=== PATIENT | male | born 1965 | race Caucasian/White ===

== ENCOUNTER → 2019-01-09 | Outpatient (CLI) | payer OTHER ==
--- NOTE | 2019-01-09 17:07 | Pulmonary Function Test ---
Pulmonary Function Test Date of Procedure:: 01/09/19 INDICATION:: COPD Referring Provider: Dr. Lazarus Burgos Wire Basket Maker: Rose Holman [employer] MANAGER, [employer] - Report Spirometry: Spirometry: pre-FVC: 6.41 L 125% pre-FEV:1 4.62 L 111% pre-FEV1/FVC % 72 predicted 80 [id number]% 3.22 L 77% Impression: Small airways disease noted by the decrease in flow at FEF 25-75%. This implies obstructive ventilatory defect
== END ==
LOC: RT 10:02
DX: J44.9 Chronic obstructive pulmonary disease, unspecified (principal); I10 Essential (primary) hypertension; E11.9 Type 2 diabetes mellitus without complications
CPT/HCPCS: 94010